=== PATIENT | female | born 1970 | race Caucasian/White ===

== ENCOUNTER 2017-07-12 09:04 | Emergency (ER) | payer BC ==
[~2017-07-12] VITALS: Ht 162.6 cm; Wt 68.2 kg
[2017-07-12 09:09] VITALS: Ht 162.6 cm; Wt 68.2 kg
[2017-07-12] MEDS ORDERED: ONDANSETRON 4 MG INJ IV STA (09:11)
[2017-07-12] MEDS ORDERED: SOD CHLORIDE 0.9% 1,000 ML IV STA (09:11)
[2017-07-12] MEDS ORDERED: LORAZEPAM 2 MG INJ IV ONE (09:30)
[2017-07-12 09:39] LABS: BASOPHILS % 0.4 % (0.0-2.0); EOSINOPHILS # 0.1 10^3/ul (0.0-0.5); EOSINOPHILS % 1.4 % (0.0-7.0); HEMATOCRIT 37.1 % (37.0-47.0); HEMOGLOBIN 12.3 g/dl (12.0-16.0); LYMPHOCYTES # 1.1 10^3/ul (0.8-2.9); LYMPHOCYTES % 19.2 % (15.0-51.0); MEAN CORPUSCULAR HEMOGLOBIN 27.9 pg (29.0-33.0); MEAN CORPUSCULAR HGB CONC 33.2 g/dl (32.0-37.0); MEAN CORPUSCULAR VOLUME 84.1 fl (82.0-101.0); MEAN PLATELET VOLUME 9.8 fl (7.4-10.4); MONOCYTE # 0.4 10^3/ul (0.3-0.9); MONOCYTES % 6.5 % (0.0-11.0); NEUTROPHILS % 72.1 % (39.0-77.0); PLATELET COUNT 310 10^3/UL (140-415); RED BLOOD COUNT 4.41 10^6/ul (4.20-5.40); RED CELL DISTRIBUTION WIDTH 13.2 % (11.5-14.5); WHITE BLOOD COUNT 5.7 10^3/ul (4.8-10.8)
[2017-07-12 09:42] LABS: ADD UMIC YES; UR ASCORBIC ACID NEGATIVE (NEGATIVE); UR BILIRUBIN (Dip) NEGATIVE (NEGATIVE); UR BLOOD (Dip) 2+ mg/dL (NEGATIVE); UR CLARITY CLEAR (CLEAR); UR COLOR YELLOW (YELLOW); UR GLUCOSE (Dip) NEGATIVE (NEGATIVE); UR KETONES (Dip) NEGATIVE (NEGATIVE); UR LEUKOCYTE ESTERASE (Dip) NEGATIVE Leu/ul (NEGATIVE); UR NITRITE (Dip) NEGATIVE (NEGATIVE); UR RBC 5 /HPF (0-5); UR SPECIFIC GRAVITY (Dip) 1.016 (1.003-1.030); UR TOTAL PROTEIN (Dip) NEGATIVE (NEGATIVE); UR UROBILINOGEN (Dip) NEGATIVE (NEGATIVE)
--- NOTE | 2017-07-12 09:46 | RADRPT ---
PROCEDURE: Chest Radiograph. CLINICAL INDICATION: Headache. Chest pain. TECHNIQUE: Single frontal chest radiograph. COMPARISON: None available FINDINGS: The cardiomediastinal silhouette is within normal limits. No infiltrate or effusion is seen. Th e bones are intact. IMPRESSION: 1. Unremarkable chest radiograph. RPTAT: KK .Devante Frye MD, MD Date Time Electronically viewed and signed by .Devante Frye MD, on 07/12/2017 09:45 .B/
[2017-07-12 10:12] LABS: ALANINE AMINOTRANSFERASE 30 IU/L (13-69); ALBUMIN 3.9 g/dl (3.3-4.9); ALKALINE PHOSPHATASE 79 IU/L (42-121); ANION GAP 17 (8-16); ASPARTATE AMINO TRANSFERASE 22 IU/L (15-46); BILIRUBIN,INDIRECT 0.9 mg/dl (0-1.1); BILIRUBIN,TOTAL 0.9 mg/dl (0.2-1.3); BLOOD UREA NITROGEN 13 mg/dl (7-20); CALCIUM 9.4 mg/dl (8.4-10.2); CARBON DIOXIDE 25 mmol/L (21-31); CHLORIDE 103 mmol/L (97-110); GLUCOSE 102 mg/dl (70-220); POTASSIUM 4.4 mmol/L (3.5-5.1); SODIUM 141 mmol/L (135-144)
--- NOTE | 2017-07-12 10:25 | RADRPT ---
PROCEDURE: CT Brain without contrast. CLINICAL INDICATION: Headache. TECHNIQUE: A CT of the brain without contrast was performed utilizing axial sections from the skul l base through the vertex. The patient was scanned without intravenous contrast enhancement. [place] l and coronal reformatted images were obtained using the data from the axial images. Total exam DLP is 630.20 mGy-cm. CTDIvol is 44.81 mGy. One or more of the following dose reduction techniques we re used: Automated exposure control, adjustment of the mA and/or kV according to patient size, use o f iterative reconstruction technique. COMPARISON: None available FINDINGS: There is normal rueda-white matter differentiation. The ventricles and cisterns are normal. There is no intracranial hemorrhage or space-occupying lesion. There is no skull fracture or lytic lesion. IMPRESSION: 1. Normal noncontrast CT scan of the brain. RPTAT: QQ .Heath Quinones MD, MD Date Time Electronically viewed and signed by .Heath Quinones MD, MD on 07/12/2017 10:24 .R/
[2017-07-12 10:28] LABS: TROPONIN-I < 0.012 ng/ml (0.00-0.12)
--- NOTE | 2017-07-12 12:09 | ERD ---
ER Documentation Chief Complaint Date/Time DATE: 07/12/17 TIME: 12:07 Chief Complaint BROUGHT IN VIA EMS FROM DUE TO ANXIETY ATTACK HPI Patient is a 47-year-old female with hypertension, diabetes, and cholesterol who presents with headache and dizziness. The patient was brought in by ambulance. She feels nausea but no vomiting. She has had diarrhea as well. The symptoms started this morning. The symptoms come and go. She had no treatment as of yet. She does feel anxious. She does not know the name of her primary doctor. ROS All systems reviewed and are negative except as per history of present illness. Allergies Allergies: Coded Allergies: No Known Allergy (Unverified , 07/12/17) PMhx/Soc Medical and Surgical Hx: pt denies Surgical Hx Hx Cardiac Disorders: Yes (HTN) Hx Alcohol Use: Yes Hx Substance Use: No Hx Tobacco Use: No Smoking Status: Never smoker FmHx Family History: diabetes Physical Exam Vitals Vital Signs Date Time Temp Pulse Resp B/P Pulse Ox O2 Delivery O2 Flow Rate FiO2 07/12/17 10:26 79 18 109/49 99 Room Air 07/12/17 09:09 97.9 70 18 108/62 100 Physical Exam Const: Anxious Head: Atraumatic Eyes: Normal Conjunctiva ENT: Normal External Ears, Nose and Mouth. Neck: Full range of motion..~ No meningismus. Resp: Clear to auscultation bilaterally Cardio: Regular rate and rhythm, no murmurs Abd: Soft, non tender, non distended. Normal bowel sounds Skin: No petechiae or rashes Back: No midline or flank tenderness Ext: No cyanosis, or edema Neur: Awake and alert Psych: Normal Mood and Affect Result Diagram: 07/12/1715 07/12/17 0915 Results 24 hrs Laboratory Tests Test 07/12/17 09:15 White Blood Count 5.710^3/ul Red Blood Count 4.4110^6/ul Hemoglobin 12.3g/dl Hematocrit 37.1% Mean Corpuscular Volume 84.1fl Mean Corpuscular Hemoglobin 27.9pg Mean Corpuscular Hemoglobin Concent 33.2g/dl Red Cell Distribution Width 13.2% Platelet Count 28005^3/UL Mean Platelet Volume 9.8fl Neutrophils % 72.1% Lymphocytes % 19.2% Monocytes % 6.5% Eosinophils % 1.4% Basophils % 0.4% Nucleated Red Blood Cells % 0.0/100WBC Neutrophils # (Manual) 410^3/ul Lymphocytes # 1.110^3/ul Monocytes # 0.410^3/ul Eosinophils # 0.110^3/ul Basophils # 0.010^3/ul Nucleated Red Blood Cells # 0.010^3/ul Urine Color YELLOW Urine Clarity CLEAR Urine pH 8.0 Urine Specific [place] 1.016 Urine Ketones NEGATIVEmg/dL Urine Nitrite NEGATIVEmg/dL Urine Bilirubin NEGATIVEmg/dL Urine Urobilinogen NEGATIVEmg/dL Urine Leukocyte Esterase NEGATIVELeu/ul Urine Microscopic RBC 5/HPF Urine Microscopic WBC 0/HPF Urine Hemoglobin 2+mg/dL Urine Glucose NEGATIVEmg/dL Urine Total Protein NEGATIVEmg/dl Sodium Level 141mmol/L Potassium Level 4.4mmol/L Chloride Level 103mmol/L Carbon Dioxide Level 25mmol/L Anion Gap 17 Blood Urea Nitrogen 13mg/dl Creatinine 0.60mg/dl Glucose Level 102mg/dl Calcium Level 9.4mg/dl Total Bilirubin 0.9mg/dl Direct Bilirubin 0.00mg/dl Indirect Bilirubin 0.9mg/dl Aspartate Amino Transf (AST/SGOT) 22IU/L Alanine Aminotransferase (ALT/SGPT) 30IU/L Alkaline Phosphatase 79IU/L Troponin I < 0.012ng/ml Total Protein 7.0g/dl Albumin 3.9g/dl Lipase 80U/L Current Medications Medications (Trade) Dose Ordered Sig/Zulma Route PRN Reason Start Time Stop Time Status Last Admin Dose Admin Sodium Chloride (NS) 1,000 ml @ 1,000 mls/hr Q1H STAT IV 07/12/17 09:11 07/12/17 10:10 DC 07/12/17 09:26 Ondansetron HCl (Zofran Inj) 4 mg ONCE STAT IV 07/12/17 09:11 07/12/17 09:14 DC 07/12/17 09:27 Lorazepam (Ativan) 0.5 mg ONCE ONCE IV 07/12/17 09:30 07/12/17 09:31 DC 07/12/17 09:27 Procedures/MDM CT head negative for intracranial mass or hemorrhage per radiology. Patient is a 47-year-old female who presents with multiple complaints. She has headache, dizziness, nausea, and diarrhea. The patient will be discharged as her laboratory studies are normal. CT scan of the brain shows no intra-cranial mass or hemorrhage. The patient will be discharged but will need to follow-up closely with her primary doctor within 24 hours for reevaluation. She can return sooner for any worsening symptoms. The patient understands the plan is okay for discharge at this time. At this point I doubt acute coronary syndrome , intracranial mass, intracranial hemorrhage, stroke, or serious bacterial infection. Departure Diagnosis: Primary Impression: Anxiety Condition: Stable JUJU NOVA MD Jul 12, 2017 12:06
[2017-07-12 12:16] VITALS: BP 107/56; PULSE 78; RESP 18; TEMP 98.1
== END 2017-07-12 12:24 | disposition home or self-care (01) ==
LOC: E/R 09:04
DX: F41.9 Anxiety disorder, unspecified (principal); I10 Essential (primary) hypertension; E11.9 Type 2 diabetes mellitus without complications; R51 Headache
CPT/HCPCS: 36415; 70450; 71010; 80048; 80076; 81001; 83690; 84484; 85025; 96374; 96375; 99285; J2060; J2405; J7030

== ENCOUNTER 2017-11-04 07:32 | Emergency (ER) | payer BC ==
[~2017-11-04] VITALS: Ht 157.5 cm; Wt 70.0 kg
[2017-11-04 07:34] VITALS: Ht 157.5 cm; Wt 70.0 kg
[2017-11-04] MEDS ORDERED: KETOROLAC 60 MG INJ IM STA (09:39)
[2017-11-04] MEDS ORDERED: ONDANSETRON (ODT) 4 MG TAB ODT STA (09:39)
[2017-11-04] MEDS ORDERED: DIPHENHYDRAMINE 50 MG INJ IM ONE (10:00)
[2017-11-04] MEDS ORDERED: ASPI1TAB31 PO (10:33)
[2017-11-04] MEDS ORDERED: PROC10TA10 PO (10:33)
[2017-11-04] MEDS ORDERED: SOD CHLORIDE 0.9% 1,000 ML IV ONE (11:00)
--- NOTE | 2017-11-04 11:55 | ERD ---
ER Documentation Chief Complaint Chief Complaint abd pain , nausea/vomiting , dizziness HPI 47-year-old female with history of migraine present ED complaining of headache, nausea, and vomiting since this morning. She had 2 episode of vomiting. Patient also complaining of slight abdominal pain for the last 3 days, no pain right now. She is able to maintain fluid intake. Patient reports photophobia. She did not take any medications for migraine at home. States that this pain is similar to previous migraine, but much worse. Denies fever or chills. Denies vision changes. ROS All systems reviewed and are negative except as per history of present illness. Medications Home Meds Active Scripts Prochlorperazine* (Prochlorperazine*) 10 Mg Tablet, 10 MG PO Q6 Y for NAUSEA AND /OR VOMITING, #10 TAB Prov:NANCY PAUL. INVASIVE CARDIOLOGIST 11/04/17 Aspirin/Acetaminophen/Caffeine (Excedrin Migraine Caplet) 1 Each Tablet, 1 EACH PO Q6 Y for HEADACHE, #30 TAB Prov:NANCY PAUL. INVASIVE CARDIOLOGIST 11/04/17 Allergies Allergies: Coded Allergies: No Known Allergy (Unverified , 11/04/17) PMhx/Soc Medical and Surgical Hx: pt denies Surgical Hx Hx Cardiac Disorders: Yes (HTN) Hx Alcohol Use: Yes (socially) Hx Substance Use: No Hx Tobacco Use: No Smoking Status: Never smoker Physical Exam Vitals Vital Signs Date Time Temp Pulse Resp B/P Pulse Ox O2 Delivery O2 Flow Rate FiO2 11/04/17 07:34 97.3 80 18 111/52 100 Physical Exam General: Well-developed, well-nourished, conscious and coherent, in no distress Skin: Warm and dry without rash, good texture and turgor Head: Normocephalic without evidence of trauma Eyes: Sclera and conjunctivae normal; pupils equal, round, and reactive to light; extraocular movements are intact Neck: Supple without meningismus or adenopathy. Carotids are equal. Trachea midline. No bruits or JVD. Bilateral sternocleidomastoid and upper trapezius muscle tightness. Chest: Normal AP diameter. Good expansion without retractions. Nontender. Lungs are clear to auscultate bilaterally with good tidal volume Heart: Regular rate and rhythm. No murmur, rub, or gallops heard Abdomen: Soft and nontender without masses, guarding, or rebound. Bowel sounds are active. No hepatosplenomegaly Extremities: Full range of motion. Good strength bilaterally. No clubbing, cyanosis, or edema. Peripheral pulses are intact. Sensation intact Neuro: Alert and oriented 4, GCS 15. Cranial nerves grossly intact. Motor and sensory exams nonfocal. Moves all extremities. Speech clear. Gait normal Results 24 hrs Current Medications Medications (Trade) Dose Ordered Sig/Zulma Route PRN Reason Start Time Stop Time Status Last Admin Dose Admin Ketorolac Tromethamine (Toradol) 60 mg ONCE STAT IM 11/04/17 09:39 11/04/17 09:41 DC 11/04/17 09:49 Diphenhydramine HCl (Benadryl) 50 mg ONCE ONCE IM 11/04/17 10:00 11/04/17 10:01 DC 11/04/17 09:49 Ondansetron HCl 4 mg 4 mg ONCE STAT ODT 11/04/17 09:39 11/04/17 09:41 DC 11/04/17 09:49 Sodium Chloride (NS) 1,000 ml @ 1,000 mls/hr Q1H ONCE IV 11/04/17 11:00 11/04/17 11:59 11/04/17 10:45 Procedures/MDM 47-year-old female with history of migraine presented ED with migraine headache and vomiting since this morning. Patient given Toradol and Benadryl IM, and Zofran ODT near the ED. Patient reports improvement of pain after medications. Patient also given 1 L of normal saline bolus. Again, patient reports improvement after fluid bolus. Low suspicion for pseudotumor cerebri, meningitis, encephalitis, giant cell arteritis, glaucoma, subarachnoid hemorrhage, subdural or epidural hematoma, intracranial bleeding or tumor. I do not feel imaging is indicated at this time. Patient did complain of abdominal pain, however she did not have any abdominal tenderness on exam. I doubt acute appendicitis, cholecystitis, pancreatitis, bowel obstruction, or other acute abdomen. Patient appears well, stable for discharge and outpatient management. Medical decision making shared with patient and family. Education provided to patient and family. Patient and family expressed understanding of the plan. Medications on discharge: Excedrin, Compazine. Follow-up: Primary care provider in 2-3 days or return to ED if worse. Disclaimer: Inadvertent spelling and grammatical errors are likely due to EHR/ dictation software use and do not reflect on the overall quality of patient care. Also, please note that the electronic time recorded on this note does not necessarily reflect the actual time of the patient encounter. Departure Diagnosis: Primary Impression: Migraine Migraine type: unspecified Status migrainosus presence: without status migrainosus Intractability: not intractable Qualified Code: G43.909 - Migraine without status migrainosus, not intractable, unspecified migraine type Condition: Stable Patient Instructions: Preventing Migraine Headaches: Triggers, Preventing Migraine Headaches: Medications and Lifestyle Changes Additional Instructions: Llame al doctor MAANA y shahab carlos ANNE MARIE PARA DENTRO DE 2-3 GRAYSON.Dgale a la secretaria que nosotros le instruimos hacer esta anne marie.Avise o llame si orozco condicin se empeora antes de la anne marie. Regresa aqui si peor o no mejor. NANCY PAUL NP Nov 04, 2017 11:55
[2017-11-04 12:27] VITALS: BP 100/45; PULSE 79; RESP 18; TEMP 97.4
== END 2017-11-04 12:15 | disposition home or self-care (01) ==
LOC: FTE 07:32
DX: G43.909 Migraine, unspecified, not intractable, without status migrainosus (principal); I10 Essential (primary) hypertension
CPT/HCPCS: 96372; 99284; J1200; J1885; J7030; Z7610

== ENCOUNTER 2017-11-21 12:53 | Emergency (ER) | END 2017-11-21 23:05 | disposition left against medical advice (07) ==

== ENCOUNTER 2019-03-15 07:39 | Emergency (ER) | payer BC ==
[~2019-03-15] VITALS: Ht 165.1 cm; Wt 65.0 kg
[~2019-03-15 07:39] MED LIST: ASPI1TAB31 PO; PROC10TA10 PO
[2019-03-15] MEDS ORDERED: DIPHENHYDRAMINE 50 MG INJ IV STA (07:43)
[2019-03-15] MEDS ORDERED: SOD CHLORIDE 0.9% 1,000 ML IV STA (07:43)
[2019-03-15] MEDS ORDERED: METOCLOPRAMIDE 10 MG INJ IV STA (07:43)
[2019-03-15] MEDS ORDERED: ONDANSETRON 4 MG INJ IV STA (07:43)
[2019-03-15 07:58] VITALS: Ht 165.1 cm; Wt 65.0 kg
[2019-03-15] MEDS ORDERED: IBUP-1542 PO ×2 (09:16→09:21)
[2019-03-15] MEDS ORDERED: TRAM50TA2 PO (09:16)
[2019-03-15 10:23] VITALS: BP 122/64; PULSE 64; RESP 18
--- NOTE | 2019-03-15 11:48 | ERD ---
ER Documentation Chief Complaint Chief Complaint headache started this morning with N/V. neuro intact HPI Patient is a 48-year-old female with migraine who presents with headache and vomiting. The patient was brought in by ambulance. Symptoms started yesterday. The patient's symptoms were worse today. The patient has had no treatment as of yet. The pain is been gradual in onset. Upon review of old medical records this is the patient's fourth visit to the ER since 2017. ROS All systems reviewed and are negative except as per history of present illness. Medications Home Meds Active Scripts Ibuprofen* (Motrin*) 600 Mg Tab, 600 MG PO Q6H PRN for PAIN AND OR ELEVATED T EMP, #30 TAB Prov:JUJU NOVA MD 03/15/19 Aspirin/Acetaminophen/Caffeine (Excedrin Migraine Caplet) 1 Each Tablet, 1 EACH PO Q6 PRN for HEADACHE, #30 TAB Prov:NANCY PAUL. WASHER AND CRUSHER TENDER 11/04/17 Reported Medications Ibuprofen* (Motrin*) 600 Mg Tab, 600 MG PO Q8H PRN for PAIN, TAB 03/15/19 Tramadol HCl (Tramadol HCl) 50 Mg Tablet, 50 MG PO Q6H PRN for PAIN LEVEL 4-6, #120 TAB 03/15/19 Discontinued Scripts Prochlorperazine* (Prochlorperazine*) 10 Mg Tablet, 10 MG PO Q6 PRN for NAUSEA AND/OR VOMITING, #10 TAB Prov:NANCY PAUL. WASHER AND CRUSHER TENDER 11/04/17 Allergies Allergies: Coded Allergies: No Known Allergy (Unverified , 03/15/19) PMhx/Soc Medical and Surgical Hx: pt denies Medical Hx, pt denies Surgical Hx Hx Cardiac Disorders: Yes (HTN) Hx Alcohol Use: Yes (socially) Hx Substance Use: No Hx Tobacco Use: No Smoking Status: Unknown if ever smoked FmHx Family History: No diabetes Physical Exam Vitals Vital Signs Date Temp Pulse Resp B/P (MAP) Pulse Ox O2 O2 Flow FiO2 Time Delivery Rate 03/15/19 98.0 64 18 122/64 100 10:23 (83) 03/15/19 97.7 73 18 117/98 100 07:58 (104) Physical Exam Const: Moderate distress Head: Atraumatic Eyes: Normal Conjunctiva ENT: Normal External Ears, Nose and Mouth. Neck: Full range of motion. No meningismus. Resp: Clear to auscultation bilaterally Cardio: Regular rate and rhythm, no murmurs Abd: Soft, non tender, non distended. Normal bowel sounds Skin: No petechiae or rashes Back: No midline or flank tenderness Ext: No cyanosis, or edema Neur: Awake and alert, cranial nerves II through XII intact, strength is 5 out of 5 in all 4 extremities, no slurred speech Psych: Tearful Result Diagram: 03/15/19 0755 03/15/19 0755 Results 24 hrs Laboratory Tests Test 03/15/19 07:55 White Blood Count 6.2 10^3/ul Red Blood Count 4.37 10^6/ul Hemoglobin 12.1 g/dl Hematocrit 37.0 % Mean Corpuscular Volume 84.7 fl Mean Corpuscular Hemoglobin 27.7 pg Mean Corpuscular Hemoglobin Concent 32.7 g/dl Red Cell Distribution Width 13.3 % Platelet Count 306 10^3/UL Mean Platelet Volume 9.4 fl Immature Granulocytes % 0.200 % Neutrophils % 67.0 % Lymphocytes % 23.3 % Monocytes % 7.4 % Eosinophils % 1.8 % Basophils % 0.3 % Nucleated Red Blood Cells % 0.0 /100WBC Immature Granulocytes # 0.010 10^3/ul Neutrophils # 4.2 10^3/ul Lymphocytes # 1.5 10^3/ul Monocytes # 0.5 10^3/ul Eosinophils # 0.1 10^3/ul Basophils # 0.0 10^3/ul Nucleated Red Blood Cells # 0.0 10^3/ul Prothrombin Time 11.6 Sec Prothrombin Time Ratio 0.9 INR International Normalized Ratio 0.84 Activated Partial Thromboplast Time 20.0 Sec Sodium Level 137 mmol/L Potassium Level 3.9 mmol/L Chloride Level 107 mmol/L Carbon Dioxide Level 22 mmol/L Anion Gap 8 Blood Urea Nitrogen 16 mg/dl Creatinine 0.55 mg/dl Est Glomerular Filtrat Rate mL/min > 60 mL/min Glucose Level 141 mg/dl Calcium Level 9.5 mg/dl Current Medications Medications Dose Sig/Zulma Start Time Status Last (Trade) Ordered Route PRN Stop Time Admin Dose Reason Admin Sodium 1,000 ml @ Q1H STAT 03/15/19 DC 03/15/19 Chloride 1,000 mls/hr IV 07:43 08:25 03/15/19 08:42 10 mg ONCE STAT 03/15/19 DC 03/15/19 Metoclopramid IV 07:43 08:25 e HCl 03/15/19 07:44 (Reglan) Ondansetron 4 mg ONCE STAT 03/15/19 DC 03/15/19 HCl (Zofran IV 07:43 08:25 Inj) 03/15/19 07:44 25 mg ONCE STAT 03/15/19 DC 03/15/19 Diphenhydrami IV 07:43 08:25 ne HCl 03/15/19 07:44 (Benadryl) Procedures/MDM CT brain negative per radiology. Patient is a 48-year-old female who presents with headache. The patient feels better after treatment. CT scan was normal laboratory studies were normal. At this point I doubt intracranial hemorrhage, intracranial mass, or stroke. I believe outpatient management is appropriate but the patient will need close follow-up with her primary doctor within 24 to 48 hours. The patient was given a prescription for ibuprofen. Departure Diagnosis: Primary Impression: Headache Headache type: unspecified Headache chronicity pattern: acute headache Intractability: not intractable Qualified Codes: R51 - Headache Condition: Fair Patient Instructions: Self-Care for Headaches Referrals: [facility] (PCP) Additional Instructions: Llame al doctor MAANA y shahab carlos ANNE MARIE PARA DENTRO DE 1-2 GRAYSON.Dgale a la secretaria que nosotros le instruimos hacer esta anne marie.Avise o llame si orozco condicin se empeora antes de la anne marie. Regresa aqui si peor o no mejor. JUJU NOVA MD Mar 15, 2019 11:48
== END 2019-03-15 10:35 | disposition home or self-care (01) ==
LOC: E/R 07:39
DX: R51 Headache (principal); I10 Essential (primary) hypertension; R11.2 Nausea with vomiting, unspecified; R40.2142 Coma scale, eyes open, spontaneous, at arrival to emergency department; R40.2252 Coma scale, best verbal response, oriented, at arrival to emergency department; R40.2362 Coma scale, best motor response, obeys commands, at arrival to emergency department; Z79.82 Long term (current) use of aspirin
CPT/HCPCS: 36415; 70450; 80048; 85025; 85610; 85730; 96374; 96375; 99285; J1200; J2405; J2765; J7030

== ENCOUNTER 2019-08-04 07:32 | Emergency (ER) | payer BC ==
[~2019-08-04] VITALS: Ht 157.5 cm; Wt 61.4 kg
[~2019-08-04 07:32] MED LIST changes: +IBUP-1542 PO; -PROC10TA10 PO; +TRAM50TA2 PO
[2019-08-04 07:35] VITALS: Ht 157.5 cm; Wt 61.4 kg
[2019-08-04] MEDS ORDERED: DIPHENHYDRAMINE 50 MG INJ IV STA (07:43)
[2019-08-04] MEDS ORDERED: METOCLOPRAMIDE 10 MG INJ IV STA (07:43)
[2019-08-04] MEDS ORDERED: SOD CHLORIDE 0.9% 1,000 ML IV STA (07:43)
[2019-08-04 08:59] VITALS: BP 113/59; PULSE 65; RESP 18
== END 2019-08-04 12:00 | disposition home or self-care (01) ==
LOC: E/R 07:32
DX: G43.009 Migraine without aura, not intractable, without status migrainosus (principal); I10 Essential (primary) hypertension; Z79.82 Long term (current) use of aspirin
CPT/HCPCS: 80048; 81001; 81025; 84484; 85025; 93005; 96374; 96375; 99284; J1200; J2765; J7030